=== PATIENT | female | born 1995 | race Caucasian/White ===

== ENCOUNTER → 2022-01-26 09:54 | Outpatient (BNVA) | payer SELFPAY | PROVIDERS: PCP Nurse Practitioner; Visit Provider Internal Medicine | DX: Z02.79 Encounter for issue of other medical certificate (principal) ==

== ENCOUNTER → 2023-02-04 09:54 | Outpatient (BNVA) | payer SELFPAY | PROVIDERS: PCP Nurse Practitioner; Visit Provider Internal Medicine | DX: Z02.79 Encounter for issue of other medical certificate (principal) ==

== ENCOUNTER → 2024-02-17 11:09 | Outpatient (BNVA) | payer SELFPAY | PROVIDERS: PCP Nurse Practitioner; Visit Provider Physician Assistant Medical | DX: Z02.79 Encounter for issue of other medical certificate (principal) ==

== ENCOUNTER → 2025-03-12 09:35 | Outpatient (BNVA) | payer SELFPAY | PROVIDERS: PCP Nurse Practitioner; Visit Provider Internal Medicine | DX: Z02.79 Encounter for issue of other medical certificate (principal) ==